=== PATIENT | male | born 1995 | race Caucasian/White ===

== ENCOUNTER 2020-06-22 13:39 | Emergency (ER) | payer SELFPAY ==
--- NOTE | 2020-06-22 15:06 | RAD ---
PORTABLE CHEST: 06/22/20 An AP portable film at 1450 shows a normal sized heart and clear lungs. No infiltrates or effusions w ere seen. The mediastinum appears normal. The bony structures were unremarkable. IMPRESSION: No acute thoracic finding. POS: HOME
[2020-06-23 03:06] LABS: SARS-CoV-2 MS2 Positive; SARS-CoV-2 N Gene Negative; SARS-CoV-2 S Gene Negative; SARS-CoV-2 by NAA Not Detected (NotDetected); SARS-CoV-2 orf1ab Negative
== END 2020-06-22 15:37 | disposition home or self-care (01) ==
LOC: BURERS 13:39
DX: B34.9 Viral infection, unspecified (principal); Z20.828 Contact with and (suspected) exposure to other viral communicable diseases; F17.210 Nicotine dependence, cigarettes, uncomplicated
CPT/HCPCS: 71045; 87635; U0003